=== PATIENT | male | born 1995 | race Caucasian/White ===

== ENCOUNTER 2020-08-01 19:01 | Emergency (ER) | payer OTHER ==
[~2020-08-01] VITALS: Ht 188 cm; Wt 79.4 kg
[2020-08-01 19:01] VITALS: BP_SYST 126
[2020-08-01 19:27] LABS: BASOPHILS # (AUTO) 0.1 K/uL (0.0-0.2); BASOPHILS % (AUTO) 0.9 % (0.0-2.0); EOSINOPHILS % (AUTO) 0.1 % (0.0-4.0); HEMATOCRIT 48.4 % (36-54); LYMPHOCYTES # (AUTO) 1.6 K/uL (1.0-5.5); LYMPHOCYTES % (AUTO) 17.4 % (20.5-51.5); MEAN CORPUSCULAR HEMOGLOBIN 29 pg (27-31); MEAN CORPUSCULAR HGB CONC 33 % (32-36); MEAN CORPUSCULAR VOLUME 87 fL (79.0-98.0); MONOCYTES # (AUTO) 0.8 K/uL (0.0-1.0); MONOCYTES % (AUTO) 8.5 % (1.7-9.3); NEUTROPHILS # (AUTO) 6.6 K/uL (1.8-7.7); NEUTROPHILS % (AUTO) 73.1 % (40.0-70.0); PLATELET COUNT (AUTO) 215 K/uL (130-430); RED BLOOD CELL COUNT(AUTO) 5.54 MIL/uL (4.2-6.2); RED CELL DISTRIBUTION WIDTH 13.9 % (9.0-15.0); WHITE BLOOD COUNT (AUTO) 9.1 K/uL (4.8-10.8)
[2020-08-01 19:48] LABS: ANION GAP 7 (5-15); CALCIUM 9.3 mg/dL (8.4-11.0); CHLORIDE 107 mmol/L (98-107); CREATININE 0.94 mg/dL (0.55-1.30); GLUCOSE 115 mg/dL (70-99); POTASSIUM 3.4 mmol/L (3.5-5.1); SODIUM SERUM 147 mmol/L (136-145); UREA NITROGEN, BLOOD 12 mg/dL (8-21)
[2020-08-01 19:49] LABS: GFR AFRICAN AMERICAN 125 mL/min (>90)
[2020-08-01 19:57] LABS: ALANINE AMINOTRANSFERASE 28 U/L (12-78); ALBUMIN 4.1 g/dL (3.4-4.8); ASPARTATE AMINOTRANSFERASE 14 U/L (10-37); LIPASE 130 U/L (73-393); TOTAL BILIRUBIN 0.1 mg/dL (0.0-1.0)
[2020-08-01] MEDS ORDERED: LEVE500T9 PO (20:01)
[2020-08-01] MEDS ORDERED: ZOLP5TAB2 PO (20:01)
[2020-08-01] MEDS ORDERED: ACET325C6 PO (20:01)
[2020-08-01] MEDS ORDERED: LORA-259 PO (20:01)
[2020-08-01] MEDS ORDERED: OLAN10TA6 PO (20:01)
[2020-08-01] MEDS ORDERED: POTASSIUM CHLORIDE 20 MEQ/PKT PACKET PO ONE (20:15)
[2020-08-01 20:18] LABS: BILIRUBIN,DIRECT 0.1 mg/dL (0.0-0.3)
[2020-08-02 01:44] VITALS: BP_SYST 123
== END 2020-08-02 01:30 | disposition short-term general hospital (02) ==
LOC: SED 19:01
DX: G91.9 Hydrocephalus, unspecified (principal); R11.10 Vomiting, unspecified; T85.01XA Breakdown (mechanical) of ventricular intracranial (communicating) shunt, initial encounter; F20.9 Schizophrenia, unspecified; F31.9 Bipolar disorder, unspecified; Z20.822 Contact with and (suspected) exposure to COVID-19; Z79.899 Other long term (current) drug therapy
CPT/HCPCS: 36415; 70450-TC; 76376; 80048; 80076; 83690; 84484; 85025; 93005; 99291